=== PATIENT | female | born 2000 | race Caucasian/White ===

== ENCOUNTER 2023-11-14 14:12 | Outpatient (CLI) | payer MEDICAID | END 2023-11-14 23:59 | disposition home or self-care (01) | LOC: RAD 14:12 | PROVIDERS: ATTEND Obstetrics & Gynecology | DX: Z34.01 Encounter for supervision of normal first pregnancy, first trimester (principal); Z3A.12 12 weeks gestation of pregnancy | CPT/HCPCS: 76801 ==